=== PATIENT | female | born 2000 | race Caucasian/White ===

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

== ENCOUNTER 2021-01-09 09:50 | Emergency (ER) | payer MEDICAID ==
[~2021-01-09] VITALS: Ht 157.5 cm; Wt 80.7 kg
[2021-01-09 09:54] VITALS: Ht 157.5 cm; Wt 80.7 kg
[2021-01-09 10:50] LABS: BASOPHIL % 0.6 % (0.2-1.3); PLATELET COUNT 357 x10^3mcL (179-408); RED CELL DISTRIBUTION WIDTH 13.1 % (12.3-17.7)
[2021-01-09 11:00] LABS: CARBON DIOXIDE 25.7 mmol/L (21-32); CHLORIDE SERUM 104 mmol/L (98-107); CREATININE SERUM 0.6 mg/dL (0.6-1.0); GFR1 > 60 mL/min; GLUCOSE SERUM 97 mg/dL (74-106); SODIUM SERUM 141 mmol/L (136-145)
[2021-01-09 11:04] LABS: ALBUMIN 3.8 g/dL (3.4-5.0); ALKALINE PHOSPHATASE 80 U/L (46-116); ALT/SGPT 34 U/L (14-59); AST/SGOT 18 U/L (15-37); BILIRUBIN TOTAL 0.2 mg/dL (0.20-1.00); LIPASE 83 IU/L (73-393); TOTAL PROTEIN, SERUM 7.8 g/dL (6.4-8.2)
[2021-01-09] MEDS ORDERED: ZOF4 PO (11:13)
[2021-01-09] MEDS ORDERED: ACETAMINOPHEN-H1 TA1 PO (11:13)
[2021-01-09] MEDS ORDERED: HYDROCODONE BIT1 T51 PO (11:24)
[2021-01-09 11:42] VITALS: BP 112/75
== END 2021-01-09 11:42 | disposition home or self-care (01) ==
LOC: ED 09:50
PROVIDERS: Emergency Medicine
DX: K80.20 Calculus of gallbladder without cholecystitis without obstruction (principal)
CPT/HCPCS: J1885